=== PATIENT | female | born 1995 | race Caucasian/White ===

== ENCOUNTER 2021-03-22 17:18 | Emergency (ER) | payer OTHER ==
[~2021-03-22] VITALS: Ht 160 cm; Wt 122.7 kg
[2021-03-22 17:40] LABS: BACTERIA,URINE TRACE /HPF; BILIRUBIN,URINE NEGATIVE (NEGATIVE); CLARITY,URINE CLEAR; COLOR,URINE YELLOW; GLUCOSE, URINE (UA) NEGATIVE (NEGATIVE); KETONES,URINE NEGATIVE (NEGATIVE); LEUKOCYTE ESTERASE ,URINE NEGATIVE (NEGATIVE); NITRITE,URINE NEGATIVE (NEGATIVE); PH,URINE 6.5 (5-9); PROTEIN,URINE NEGATIVE (NEGATIVE); WBC,URINE 0-2 /HPF
[2021-03-22 17:41] LABS: YEAST,URINE FEW /HPF
[2021-03-22] MEDS ORDERED: FLUCONAZOLE 150 MG TABLET (ED ONLY) PO STA (18:20)
[2021-03-22] MEDS ORDERED: IBUPROFEN 800 MG (MOTRIN) TAB PO STA (18:20)
--- NOTE | 2021-03-22 18:25 | ED GU-Female ---
General Chief Complaint: - Reproductive Stated Complaint: VAG PAIN Source: patient, other (significant other) History of Present Illness Date Seen by Provider: Mar 22, 2021 Time Seen by Provider: 17:55 Initial Comments 25-year-old female presenting with complaints of pelvic and vaginal pain for over a week. She has had some "slimy mucus discharge" that both her and her girlfriend thought was due to having sexual relations every day or every other day. She had denied any other vaginal discharge. She denied pain with urination. She reports being approximately 2 weeks late for her menstrual cycle. Her last menstrual period ended on 14 February. She denies any change in her bowels or blood in her stool. She has had no direct trauma to her abdomen. She has been trying Tylenol for the pain. She has intermittent sharp pains that come and go. Nothing seems to be triggered to make the pain come on or to make it go away. She does have increased pain with palpation over the suprapubic area. This extends across her lower pelvic area. She denies any fever or chills. Today at work she had severe pain to the point that it dropped her to her knees. Due to that her girlfriend picked her up from work and after discussion with the patient's mother decided that rather than be seen at a hospital in [place] they came here to the stand-alone emergency department with fewer resources in [place] because they do not like [facility] and feel it is a "Band-aid station and they don't care about anybody that goes there" Allergies and Home Medications Allergies Coded Allergies: No Known Drug Allergies (Unverified , 03/22/21) Patient Home Medication List Home Medication List Reviewed: Yes Review of Systems Review of Systems Constitutional: No chills, No fever EENTM: no symptoms reported Respiratory: no symptoms reported Cardiovascular: no symptoms reported Gastrointestinal: see HPI Genitourinary: see HPI : No Musculoskeletal: no symptoms reported Skin: No pruritus, No rash Psychiatric/Neurological: Denies Headache Past [id number] Hx Patient Social History Tobacco Use?: Yes Tobacco type used: Cigarettes Smoking Status: Current Everyday Smoker Use of E-Cig and/or Vaping dev: No Substance use?: No Alcohol Use?: No Pt feels they are or have been: No Physical Exam Vital Signs Vital Signs - First Documented 03/22/21 17:34 Temp 36.4 Pulse 83 Resp 16 B/P (MAP) 151/85 (107) Pulse Ox 98 O2 Delivery Room Air Capillary Refill : Height, Weight, BMI Height: '" Weight: lbs. oz. kg; BMI Method: General Appearance: no apparent distress, obese HEENT: PERRL/EOMI Cardiovascular: normal peripheral pulses, regular rate, rhythm Respiratory: chest non-tender, lungs clear, normal breath sounds Gastrointestinal: normal bowel sounds, soft, no pulsatile mass; No distended, No guarding, No rebound; tenderness (suprapubic and across lower pelvic area) Rectal: deferred Pelvic: other (pt refused speculum exam or vaginal exam here and stated she wanted to wait and see her PCP or Campaign Developer if referred by PCP) Extremities: normal range of motion, non-tender, normal capillary refill Neurologic/Psychiatric: alert, oriented x 3 Skin: normal color, warm/dry Progress/Results/Core Measures Suspected Sepsis SIRS Temperature: Pulse: Respiratory Rate: Blood Pressure / Mean: Results/Orders Lab Results Laboratory Tests Test 03/22/21 17:22 Range/Units Urine Color YELLOW Urine Clarity CLEAR Urine pH 6.5 5-9 Urine Specific Elizabeth 1.015 L 1.016-1.022 Urine Protein NEGATIVE NEGATIVE Urine Glucose (UA) NEGATIVE NEGATIVE Urine Ketones NEGATIVE NEGATIVE Urine Nitrite NEGATIVE NEGATIVE Urine Bilirubin NEGATIVE NEGATIVE Urine Urobilinogen 0.2 < = 1.0 MG/DL Urine Leukocyte Esterase NEGATIVE NEGATIVE Urine RBC (Auto) NEGATIVE NEGATIVE Urine RBC NONE /HPF Urine WBC 0-2 /HPF Urine Squamous Epithelial Cells 5-10 /HPF Urine Crystals NONE /LPF Urine Bacteria TRACE /HPF Urine Casts NONE /LPF Urine Mucus NEGATIVE /LPF Urine Yeast FEW H /HPF Urine Culture Indicated NO My Orders Orders - ROBERTO ROSENBAUM MD Ua Culture If Indicated (03/22/21 17:23) Neis Bandar Dna Urine Test (03/22/21 17:23) Chlamydia Trachomatis Urine (03/22/21 17:23) Urine Bedside (03/22/21 17:28) Fluconazole Tablet (Ed Only) (Diflucan T (03/22/21 18:20) Ibuprofen Tablet (Motrin Tablet) (03/22/21 18:20) Vital Signs/I&O 03/22/21 03/22/21 17:34 18:30 Temp 36.4 36.4 Pulse 83 83 Resp 16 16 B/P (MAP) 151/85 (107) 151/85 Pulse Ox 98 98 O2 Delivery Room Air Room Air Capillary Refill : Progress Note : Progress Note Obtain urinalysis and bedside urine test. The bedside test was negative for and the urinalysis was clear of infection other than showing some yeast. Discussed results with patient and reviewed the a pelvic her speculum exam will be a way to look for other signs of infection such as bacterial overgrowth or vaginosis, trichomonas, vaginal yeast infection. To look for ovarian cyst or see why she was having irregular. She would need an ultrasound or further testing beyond what I have available here tonight. Patient refused a speculum or vaginal exam and stated she would wait to see her regular provider. Counseled to try taking naproxen or ibuprofen for an NSAID to try and help in with her pain. She can still take the Tylenol on top of that. Advised if she had worsening symptoms or something change to be seen again however currently the only other does not have tonight would be CT scan and that does not show ovarian cyst very well. The ultrasound would be the more ideal way to try and look for that. We will give a dose of Diflucan here to treat for the yeast seen on urinalysis. A dose of ibuprofen to help with pain and inflammation. GC and Chlamydia testing on the urinalysis is pending. Departure Impression Primary Impression: Suprapubic pain Additional Impressions: Pelvic pain Yeast vaginitis Disposition: 01 HOME, SELF-CARE Condition: Stable Departure-Patient Inst. Decision time for Depature: 18:23 Referrals: NO,LOCAL PHYSICIAN (PCP/Family) Primary Care Physician Patient Instructions: Vaginal Yeast Infection, Adult ED, Pelvic Pain ED Add. Discharge Instructions: Take Ibuprofen 800 mg every 8 hours as needed for pain and inflammation. Alternatively, you could take Naproxen (Aleve) 2 pills every 12 hours as needed for pain and inflammation. Check with your regular doctor about having a pelvic exam and you may need an ultrasound to look for ovarian cysts or other reason for your pain. Your test today was negative and no sign of infection in urine other than some yeast. The Diflucan pill you took today will treat the yeast seen in urinalysis. All discharge instructions reviewed with patient and/or family. Voiced understanding. ROBERTO ROSENBAUM MD Mar 22, 2021 18:25
[2021-03-22 18:30] VITALS: BP 151/85
== END 2021-03-22 18:34 | disposition home or self-care (01) ==
LOC: ER FS 17:22
DX: B37.3 Candidiasis of vulva and vagina (principal); E66.9 Obesity, unspecified; F17.210 Nicotine dependence, cigarettes, uncomplicated; Z32.02 Encounter for pregnancy test, result negative
CPT/HCPCS: 36415; 81000; 84703; 87491; 87591; 99283